=== PATIENT | male | born 1990 | race Caucasian/White ===

== ENCOUNTER 2021-12-30 08:31 | Emergency (ER) | payer BC, OTHER ==
--- NOTE | 2021-12-30 08:35 | ERPHSYRPT ---
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 Patient arrives to the emergency department in no significant distress. He is a bit anxious. He does not appear to be in significant pain. He is concerned that there are paint particles in the subcutaneous tissue where the paint sprayed into his left hand. It occurred prior to arrival. Occurred: just prior to arrival Method of Injury: other (High velocity pressure) Severity of Pain-Max: none Severity of Pain-Current: none Extremities Pain Location: hand: left Modifying Factors: Improves With: movement Allergies/Adverse Reactions: lisinopril Allergy (Verified 12/30/21 08:50) Home Medications: No Reportable Medications [No Reported Medications] 12/30/21 [History] Travel Risk - International Travel Have you traveled outside of the country in past 3 weeks: No - Coronavirus Screening Are you exhibiting any of the following symptoms?: No Close contact with a COVID-19 positive Pt in past 14-21 Days: No - Review of Systems Constitutional: No Symptoms Eyes: No Symptoms Ears, Nose, & Throat: No Symptoms Respiratory: No Symptoms Cardiac: No Symptoms Abdominal/Gastrointestinal: No Symptoms Genitourinary Symptoms: No Symptoms Musculoskeletal: Injury (Left hand thenar eminence) Skin: No Symptoms Neurological: No Symptoms Psychological: No Symptoms Endocrine: No Symptoms Hematologic/Lymphatic: No Symptoms Immunological/Allergic: No Symptoms All Other Systems: Reviewed and Negative - Past Medical History Pertinent Past Medical History: No - Past Surgical History Past Surgical History: No - Nursing Vital Signs Nursing Vital Signs: Initial Vital Signs Temperature 97.1 F 12/30/21 08:38 Pulse Rate 94 H 12/30/21 08:38 Blood Pressure 116/92 12/30/21 08:38 O2 Sat by Pulse Oximetry 99 12/30/21 08:38 Pain Scale Pain Intensity 1 - Physical Exam General Appearance: no apparent distress, alert, anxiety Eyes, Ears, Nose, Throat Exam: normal ENT inspection, moist mucous membranes Neck Exam: normal inspection, non-tender, supple, full range of motion Cardiovascular/Respiratory Exam: chest non-tender, no respiratory distress Abdominal Exam: non-tender Back Exam: normal inspection, normal range of motion, No CVA tenderness, No vertebral tenderness Shoulder Exam: normal inspection, non-tender, no evidence of injury, normal ROM Elbow/Forearm Exam: normal inspection, non-tender, no evidence of injury, normal ROM Wrist Exam: normal inspection, non-tender, no evidence of injury, normal ROM Hand Exam: normal inspection, non-tender, no evidence of injury, normal ROM, soft tissue tenderness (Left hand thenar eminence) Neuro/Tendon Exam: normal sensation, normal motor functions, normal tendon functions, responds to pain, no evidence tendon injury Mental Status Exam: alert, oriented x 3, cooperative Skin Exam: normal color, warm, dry SpO2 Interpretation: normal O2 Delivery: Room Air - Course Nursing assessment & vital signs reviewed: Yes Ordered Tests: Active Orders 24 hr Category Date Time Status HAND (MINIMUM 3 VIEWS) Stat Exams 12/30/21 08:47 Taken - Progress Progress: unchanged Progress Note: 12/30/21 09:23 X-ray left hand shows no acute fracture or dislocation. There is no evidence of opaque foreign body Counseled pt/family regarding: diagnosis, need for follow-up, rad results - Departure Departure Disposition: Home Clinical Impression: Injury of left hand, Contusion of left hand Condition: Stable Critical Care Time: No Additional Instructions: Use Tylenol and ibuprofen for pain control. Ice bath/pack to left hand 3 times a day for the next 48 hours. Follow-up with your primary care physician for fur ther evaluation management
[2021-12-30 08:50] VITALS: BP 116/92; PULSE 94; O2SAT 99
--- NOTE | 2021-12-30 09:56 | XRAY ---
Indication: Foreign body. Comparison: None 3 view left hand demonstrates partially visualized distal radial shaft orthopedic hardware and old nonunited styloid fracture. No other bony, articular, or soft tissue abnormalities.
== END 2021-12-30 09:28 | disposition home or self-care (01) ==
LOC: ED 08:31
DX: S60.222A Contusion of left hand, initial encounter (principal); W20.8XXA Other cause of strike by thrown, projected or falling object, initial encounter; Y99.0 Civilian activity done for income or pay
CPT/HCPCS: 73130; 99281